=== PATIENT | male | born 1985 | race African-American/Black ===

== ENCOUNTER 2018-09-10 22:32 | Emergency (ER) | payer MEDICAID, OTHER ==
[~2018-09-10] VITALS: Ht 188 cm; Wt 118.0 kg
[2018-09-10] MEDS ORDERED: KETOROLAC 30MG/ML VIAL IV ONE (23:30)
[2018-09-11 01:05] LABS: CHLORIDE 108 mEq/L (98-107)
[2018-09-11 02:14] VITALS: BP 132/79
== END 2018-09-11 02:15 | disposition home or self-care (01) ==
LOC: ER 22:32
DX: S10.93XA Contusion of unspecified part of neck, initial encounter (principal); R49.9 Unspecified voice and resonance disorder; F12.10 Cannabis abuse, uncomplicated; F17.200 Nicotine dependence, unspecified, uncomplicated; W01.0XXA Fall on same level from slipping, tripping and stumbling without subsequent striking against object, initial encounter; Y93.89 Activity, other specified; Y92.89 Other specified places as the place of occurrence of the external cause; Y99.8 Other external cause status
CPT/HCPCS: 36415; 70491; 80048; 96374; 99284; J1885

== ENCOUNTER 2020-05-31 07:18 | Emergency (ER) | payer MEDICAID ==
[~2020-05-31] VITALS: Ht 193 cm; Wt 123.0 kg
[2020-05-31] MEDS ORDERED: KETOROLAC 30MG/ML VIAL IV ONE (08:00)
[2020-05-31] MEDS ORDERED: TRAMADOL 50MG TABLET PO ONE (08:00)
[2020-05-31] MEDS ORDERED: ENOXAPARIN 120MG/0.8ML SYR SUBCUT ONE (12:00)
[2020-05-31 13:40] VITALS: BP 137/80
== END 2020-05-31 13:40 | disposition home or self-care (01) ==
LOC: ER 07:32
DX: I82.412 Acute embolism and thrombosis of left femoral vein (principal); I82.432 Acute embolism and thrombosis of left popliteal vein; F12.10 Cannabis abuse, uncomplicated
CPT/HCPCS: 93971; 96372; 96374; 99285; J1650; J1885